=== PATIENT | female | born 1955 | race Caucasian/White ===

== ENCOUNTER 2025-06-21 14:25 | Emergency (ER) | payer MEDICARE, OTHER, SELFPAY ==
[2025-06-21 14:27] VITALS: BP 134/101
[2025-06-21 15:07] LABS: Hematocrit 42.4 % (37.0-47.0); Hemoglobin 14.5 g/dL (12.0-16.0); Mean Corp Hgb Conc. 34.2 g/dL (33.0-37.0); Mean Corpuscular Volume 83.3 fL (81.0-99.0); Nucleated Red Blood Cells % 0 %; Platelet Count 181 10^3/uL (130-400); Red Cell Dist. Width 14.3 % (11.5-14.5)
[2025-06-21] MEDS: NSS 1000 IV (15:24)
[2025-06-21 15:26] LABS: Blood Urea Nitrogen 12 mg/dl (7-17); Calcium 9.3 mg/dl (8.4-10.2); Carbon Dioxide 24 mmol/L (22-30); Chloride 104 mmol/L (98-107); Glucose 115 mg/dl (70-99); Sodium 137 mmol/L (135-145); eGFR > 60.00
[2025-06-21 15:39] VITALS: BP 112/92; BMI 26.7
[2025-06-21 16:00] VITALS: BP 123/83
--- NOTE | 2025-06-21 16:12 | ED.GENMED ---
History of Present Illness
General
Chief Complaint: Heart Rate Problem
Time Seen by Provider: 06/21/25 14:38
History of Present Illness
History of Present Illness:
See MDM
Phy Exam
Physical Exam
Physical Exam:
See MDM
Course
Orders/Labs/Results
Orders:
Orders
06/21/25 14:26
Electrocardiogram (*1) Urgent
Reason for Study: Tachycardia
EKG- Treatment ONCE
06/21/25 14:35
Electrocardiogram (*1) Stat
Comment: ALREADY DONE ED
06/21/25 14:47
0.9% Sodium Chloride 1000 ml [Nss] 1,000 ml IV BOLUS
06/21/25 14:50
Basic Metabolic Panel Urgent
Complete Blood Count/With Diff Urgent
Abnormal Lab Results
06/21/25
14:50
Glucose 115 H mg/dl
(70-99)
06/21/25 14:50
06/21/25 14:50
Vital Signs
Initial and Last Documented VS:
Initial Vital Signs
Temp Pulse Resp BP Pulse Ox
97.9 F 176 18 134/101 98
06/21/25 14:27 06/21/25 14:27 06/21/25 14:27 06/21/25 14:27 06/21/25 14:27
Last Documented Vital Signs
Temp Pulse Resp BP Pulse Ox
98.6 F 94 25 112/92 96
06/21/25 15:39 06/21/25 15:40 06/21/25 15:40 06/21/25 15:39 06/21/25 15:40
MDM/Problems Addressed
Differential Diagnosis Includes:
Note:
CHIEF COMPLAINT(S)
Dehydration and personal history of Supraventricular Tachycardia (SVT).
HISTORY OF PRESENT ILLNESS
The patient is a 70-year-old female with a past medical history significant for SVT, for which she underwent ablation in 2009. The patient reports that she has not experienced significant episodes since the ablation. However, today she presents with
symptoms she attributes to dehydration, stating that she feels 'a little dry,' which has triggered a self-resolving episode of SVT. The patient mentioned she typically converts spontaneously, as she did today, without medical intervention. Her
current episode occurred without known precipitant aside from dehydration. She consumed a beverage en route to the appointment, which she felt was helping her condition. In the past, beta-blockers were prescribed, but she experienced intolerable
side effects such as leg discomfort. She is not currently on any beta-blockers. Additionally, she had a previous incident several months ago where her blood pressure unexpectedly increased. At that time, medication adjustments were made, including
starting and discontinuing beta blockers due to side effects.
The patient is currently visiting the area for a short duration and plans to continue her travel tomorrow. She plans to follow up with her physician upon returning home and is considering seeking a fruit or nut crops farm manager nearer to her residence for ongoing
management of her cardiac condition.
CHRONIC MEDICAL CONDITIONS SIGNIFICANTLY AFFECTING CARE
1. Supraventricular Tachycardia (SVT).
PHYSICAL EXAM
General: Alert, no acute distress.
Skin: Warm, dry.
Head: Normocephalic, atraumatic
Neck: Appears supple, trachea midline.
Eyes, Ears, Nose, Mouth, and Throat: Mildly dry mucous membranes
Cardiovascular: No signs of cyanosis. Regular rate and rhythm
Respiratory: Respirations are non-labored.
Abdomen: Non-distended
Musculoskeletal: No deformities
Neurological: No focal neurological deficit observed.
Psychiatric: Cooperative, appropriate mood and affect.
PLAN
1. Administer intravenous fluids to address dehydration.
2. Conduct blood work to ensure no acute issues requiring intervention.
3. Discuss follow-up with the patients fruit or nut crops farm manager regarding potential further management, including the consideration of another ablation if necessary.
4. Recommend the patient consult a fruit or nut crops farm manager near her residence to ensure continuity of care.
5. Discharge the patient with instructions to hydrate properly and follow up with her primary care physician upon returning home.
DIFFERENTIAL DIAGNOSIS
The Differential Diagnosis includes, in no particular order and is not limited to:
1. Recurrence of Supraventricular Tachycardia (SVT)
2. Dehydration-induced arrhythmia
3. Electrolyte imbalance
4. Atrial fibrillation
5. Decompensated heart failure
6. Reactive hypertension
7. Medication-induced side effects
8. Anxiety-induced palpitations
9. Hyperthyroidism
10. Pulmonary embolism
EKG
My independent EKG interpretation is:
- Rhythm: Supraventricular tachycardia (SVT)
- Heart rate: 171 beats per minute
- Henderson: Normal
- Abnormalities: No ST segment elevation (BRAEDEN)
EKG
My independent EKG interpretation is:
- Rhythm: Normal sinus rhythm
- Heart Rate: 100 beats per minute
- Henderson: Normal
- Abnormalities: No ST elevation
- Previous Condition: Initial supraventricular tachycardia (SVT) has resolved
Disposition:
SUMMARY OF ENCOUNTER
The patient, a 70-year-old female with a history of supraventricular tachycardia (SVT), presented to the emergency department due to symptoms she attributed to dehydration, which she believed triggered a self-resolving episode of SVT. In the ED, her
condition was managed with intravenous fluids to address dehydration. She spontaneously converted to a normal sinus rhythm and reported feeling better following treatment. Blood work did not reveal significant abnormalities.
DISPOSITION
Discharge
ASSESSMENT
Dehydration-induced arrhythmia and previous history of supraventricular tachycardia (SVT).
PLAN
The patient was advised on maintaining adequate hydration. She was informed about strict return precautions and instructed to follow up with her primary care physician and local fruit or nut crops farm manager once she returns home.
PATIENT EDUCATION AND COUNSELING
Educated the patient on the importance of staying hydrated to prevent further episodes and discussed strict return precautions.
FOLLOW-UP INSTRUCTIONS
The patient plans to follow up with her primary care physician and call her local fruit or nut crops farm manager upon returning home.
MEDICATION RECONCILIATION
The patient declined a prescription for a beta-dagoberto due to past intolerance of this medication group.
MEDICAL DECISION MAKING
- Number and Complexity of Problems Addressed: Chronic conditions affecting care include Supraventricular Tachycardia (SVT), potentially exacerbated by dehydration. Differential diagnoses considered were dehydration-induced arrhythmia and history of
SVT.
- Data:
Category 1
My independent interpretation of EKG revealed a normal sinus rhythm at discharge.
Category 2
Clinical information obtained from the patient regarding her intolerance to beta-blockers.
Category 3
No discussions with other healthcare providers are documented.
- Risk:
Consideration of Admission/Observation: Escalation of care including admission/observation was considered given the complexity and risk of the patients presenting complaint, exam findings, and/or their underlying comorbidities. However, ultimately,
I feel the patient is safe for outpatient management with close follow-up. Reasoning: Work-up reassuring, does not reveal any acute life/organ-threatening processes, patients symptoms well controlled upon reevaluation, reexamination is reassuring,
vitals are stable, patient agreeable with discharge, reliable for follow-up.
DIAGNOSIS
1. Dehydration-induced arrhythmia (ICD-10 Code: I47.1)
2. History of Supraventricular Tachycardia (ICD-10 Code: I47.1)
*Pulse Oximetry
SaO2: 96
Oxygen Mode of Delivery: Room air
Patient hypoxic: no
*Critical Care Note
Total Time (30-74mins, 75-104mins- exclusive of procedures): Not Applicable
ED Attending Note
-
Portions of this chart may have been created with voice recognition software.� Occasional wrong word or��sound alike� substitutions may have occurred due to the inherent limitations of voice recognition software.
Discharge Plan
Departure
Patient Disposition: Home (Routine Discharge)
Date of Disposition: 06/21/25
Time of Disposition: 16:12
Patient with high blood pressure during this ER visit?: No
Discharge Problem:
SVT (supraventricular tachycardia)
Instructions: Supraventricular tachycardia (SVT)
Prescriptions:
No Action
No Current Medications
0
Referrals:
UNKNOWN - PT DOES,NOT KNOW [Family Provider]
Activity Restrictions/Additional Instructions:
Please return for any worsening symptoms.
You may return at any time if you have further concerns.
Please follow up with your doctor at the first available appointment, preferably this week.
Please make an appointment with your local fruit or nut crops farm manager when you return home.
Thank you for choosing [facility].
Interventions
Interventions:
*Risk Screen - Suicide Last Done: 06/21/25 14:27
*General Assessment Last Done: 06/21/25 14:27
*Neglect/Abuse Screening Last Done: 06/21/25 15:41
*ED- Fall Risk Assessment Last Done: 06/21/25 15:39
*ED COVID-19 Vaccine History Last Done: 06/21/25 15:39
*ED Influenza Vaccine History Last Done: 06/21/25 15:39
ED- Cardiac Assessment Last Done: 06/21/25 15:39
ED- Pulmonary Assessment Last Done: 06/21/25 15:39
Discharge Date and Time
Print Language: LATVIAN
== END 2025-06-21 16:25 | disposition home or self-care (01) ==
LOC: EMR 14:25
PROVIDERS: EMERGENCY PHYSICIAN Student in an Organized Health Care Education/Training Program
DX: I47.10 Supraventricular tachycardia, unspecified (principal); E86.0 Dehydration
CPT/HCPCS: 99284; 96360; 80048; 85025; 93005